=== PATIENT | female | born 1950 | race Caucasian/White ===

== ENCOUNTER 2020-01-02 12:30 | Outpatient (CLI) | payer MEDICARE, SELFPAY ==
--- NOTE | ~2020-01-02 | CT_ITS ---
EXAMINATION: CT shoulder RT wo con DATE: 01/02/2020 14:17 INDICATION: Right shoulder osteoarthritis. TECHNIQUE: Computed tomography (CT) of the right shoulder was performed without intravenous contrast. Automated exposure control and iterative reconstruction technique were employed. The dose-length pro duct was 457.39 mGy-cm. COMPARISON: Right shoulder radiographs 10/21/2019 FINDINGS: There is mild scarring at right lung apex. Bone alignment is normal. No fracture. There is advanced glenohumeral joint osteoarthritis including mild bone volume loss of the humeral head and gl enoid. There is moderate acromioclavicular joint osteoarthritis including inferiorly directed osteoph ytes. There is mild fatty atrophy of subscapularis muscle belly. IMPRESSION: 1. Advanced right glenohumeral joint osteoarthritis. Reviewed, dictated and finalized at location E.
== END 2020-01-02 12:31 | disposition home or self-care (01) ==
LOC: ANHIMG 12:42
PROVIDERS: PCP Internal Medicine; Visit Provider Orthopaedic Surgery
DX: M19.011 Primary osteoarthritis, right shoulder (principal)
CPT/HCPCS: 73200

== ENCOUNTER 2020-01-02 14:24 | Outpatient (CLI) | payer MEDICARE, SELFPAY ==
--- NOTE | 2020-01-02 15:07 | ECG_ITS ---
Measurements Intervals Pearl Rate: 62 P: 42 ND: 206 QRS: -4 QRSD: 159 T: 67 QT: 471 QTc: 481 Interpretive Statements SINUS RHYTHM BORDERLINE AV CONDUCTION DELAY LEFT BUNDLE BRANCH BLOCK BASELINE ARTIFACT- I, II, III, AVR, AVL, AVF ABNORMAL ECG Electronically Signed On 01-02-2020 16:17:01 CDT by Eddi Arteaga D.O.
[2020-01-02 15:32] LABS: Basophils Absolute Auto 0.1 K/mm3 (0.0-0.1); Basophils Percent Auto 0.6 % (0.2-1.2); Eosinophils Absolute Auto 0.2 K/mm3 (0-0.3); Eosinophils Percent Auto 2.1 % (0-4.4); Hematocrit 44.7 % (37.0-47.0); Hemoglobin 15.3 g/dL (12.0-15.0); Immature Granulocyte Absolute 0.04 K/mm3 (0.00-0.031); Immature Granulocyte Percent A 0.5 % (0-0.5); Lymphocytes Absolute Auto 2.15 K/mm3 (0.9-3.2); Lymphocytes Percent Auto 26.3 % (18.3-44.2); Mean Corpuscular HGB Conc 34.2 g/dl (32-36); Mean Corpuscular Hemoglobin 29.1 pg (26-34); Mean Corpuscular Volume 85.1 fl (80-100); Mean Platelet Volume 9.7 fl (7.4-10.4); Monocytes Absolute Auto 0.5 K/mm3 (0.1-0.6); Monocytes Percent Auto 6.1 % (2.6-8.5); Neutrophils Absolute Auto 5.3 K/mm3 (1.3-6.7); Neutrophils Percent Auto 64.4 % (45.5-73.1); Platelet Count Result 298 k/mm3 (150-375); Red Blood Count 5.25 M/mm3 (4.2-5.4); Red Cell Distribution Width 12.7 % (11.5-14.5); White Blood Count 8.2 K/mm3 (4.5-10.0)
[2020-01-02 15:42] LABS: Blood Urea Nitrogen 18 mg/dL (7-17); Carbon Dioxide 31 mmol/L (22-30); Chloride 102 mmol/L (98-107); Estimated Glomerular Filt Rate > 60; Glucose 109 mg/dL (65-105); Potassium 3.7 mmol/L (3.4-5.0); Sodium 138 mmol/L (137-145)
== END 2020-01-02 14:25 | disposition home or self-care (01) ==
PROVIDERS: Anesthesiology; PCP Internal Medicine; Visit Provider Orthopaedic Surgery
DX: Z01.818 Encounter for other preprocedural examination (principal); M19.011 Primary osteoarthritis, right shoulder; I10 Essential (primary) hypertension; I44.7 Left bundle-branch block, unspecified; R94.31 Abnormal electrocardiogram [ECG] [EKG]
CPT/HCPCS: 36415; 73200; 80048; 85025; 87081; 93005

== ENCOUNTER 2020-01-21 00:07 | Outpatient (CLI) | payer MEDICARE, SELFPAY ==
[2020-01-21 18:58] LABS: SARS-CoV-2 RNA PCR Negative
== END 2020-01-21 00:08 | disposition home or self-care (01) ==
LOC: ANHCOVIDDT 00:08
PROVIDERS: PCP Internal Medicine; Visit Provider Orthopaedic Surgery
DX: Z01.812 Encounter for preprocedural laboratory examination (principal); Z20.828 Contact with and (suspected) exposure to other viral communicable diseases
CPT/HCPCS: 87635; C9803; U0003

== ENCOUNTER 2020-01-23 11:48 | Inpatient (IN) | payer MEDICARE, SELFPAY ==
[2020-01-02 15:09] VITALS: BP 144/85; PULSE 71; RESP 18; TEMP 37.2; O2SAT 97; BMI 29.5
[2020-01-23] VITALS (14 sets, daily range): BP systolic 98–158; BP diastolic 56–83; PULSE 64–86; RESP 13–20; TEMP 36.2–37.3; O2SAT 90–98; BMI 29.9
--- NOTE | ~2020-01-23 | XR_ITS ---
EXAMINATION: XR shoulder RT min 2V DATE: 01/23/2020 10:47 INDICATION: Right shoulder arthroplasty TECHNIQUE: 2 views right shoulder FINDINGS: There is a right total shoulder arthroplasty in expected position. Subcutaneous gas with s oft tissue swelling are consistent with recent surgery. IMPRESSION: 1. Recent right total shoulder arthroplasty. Reviewed, dictated and finalized at location A.
[2020-01-23] MEDS: LACTATED RINGERS 1,000 ML 30 ML IV CONT ×2 (06:30→10:20)
--- NOTE | 2020-01-23 06:52 | WPDANESEPPF ---
Anes - Initial Pre Proc Eval Procedure: Operation Date: 01/23/20 07:30 Proposed Procedures p Right Total Shoulder Arthroplasty - Jb Conroy MD Date/Time: 01/23/20 06:52 Surgeon: Jb Conroy MD Pre Op Diagnosis: OA Right Shoulder Patient Data Age: 69 Gender: F Height: 5 ft Weight: 68.5 kg Last Vital Signs Temp 37.2 C 01/02/20 15:09 Pulse 71 01/02/20 15:09 Resp 18 01/02/20 15:09 BP 144/85 H 01/02/20 15:09 Pulse Ox 97 01/02/20 15:09 Allergies Allergy/AdvReac Type Severity Reaction Status Date / Time quinapril Allergy Unknown Cough Verified 01/13/20 08:06 Home Medications Medication Instructions Recorded Confirmed Type alprazolam 0.25 mg tablet 0.25 mg PO HS 10/21/19 01/13/20 History aspirin 81 mg tablet,delayed 81 mg PO DAILY 10/21/19 01/13/20 History release calcium carbonate 600 mg calcium 600 mg PO BID 10/21/19 01/13/20 History (1,500 mg) tablet hydrochlorothiazide 25 mg tablet 25 mg PO DAILY 10/21/19 01/13/20 History levothyroxine 50 mcg tablet 50 mcg PO DAILY 10/21/19 01/13/20 History metoprolol succinate 25 mg 100 mg PO BID tablet 10/21/19 01/13/20 History tablet,extended release 24 hr Patient hx anesthesia problems: none Family hx anesthesia problems: none PMFSH Past Medical History Medical History Anxiety Depression Hypertension Thyroid disease Surgical History Surgical History History of total abdominal hysterectomy Status post right partial knee replacement (~11/08/17) Family History Family History Mother Family history of arthritis Sibling Family history of Parkinson's disease Malignant neoplasm of prostate Family history of malignant neoplasm of ovary Other Cerebrovascular accident Family history of cardiovascular disease Family history of development disorder Family history of hypercholesterolemia Family history of kidney disease Family history of thyroid disease Hypertension Social History Social History Smoking status: Never smoker Second hand tobacco smoke exposure: No Alcohol intake: current Anes - Eval Final PreProcedure Day of Procedure 01/23/20 06:52 Patient weight: overweight Heart: regular rate and rhythm Lungs: clear to auscultation Airway: Mallampati scale class 1 Neurological: alert and oriented Last oral intake: >/= 8 hours ASA classification: III Emergent: no Anesthetic plan: proceed Anesthesia type and monitoring: general ETT and standard monitoring Informed Consent: The patient's anesthetic plan and its attendant risks and benefits were discussed with the patient/family/POA. Questions were solicited and answers provided to the satisfaction of the patient/family/POA.
[2020-01-23] MEDS: TRANEXAMIC ACID 1,000MG/ISO100 1,000 MG/100 ML BAG 200 MG IVPB (07:05)
--- NOTE | 2020-01-23 07:16 | WPDHPUPDATE1 ---
History and Physical Update Update Date/Time: 01/23/20 07:16 History and Physical has been reviewed, including an updated exam of the patient. There are NO changes in the patient's condition. Risks, benefits, and alternatives have been discussed and questions answered. Patient agrees to proceed with procedure.
[2020-01-23] MEDS: ceFAZolin 2 GM/D5W 50 ML 2 GM/50 ML BAG IVPB (07:30)
--- NOTE | 2020-01-23 10:00 | PM.PROC ---
Procedure Note - Detailed Date of procedure: 01/23/20 Pre-op diagnosis: OA Right Shoulder Post-op diagnosis: same Procedure performed: 1. Anatomic total shoulder arthroplasty 2. Lesser tuberosity osteotomy. 3. Biceps tenodesis. Description of procedure: Bone quality fair. Small stature. Posterior capsule released. Implants: [employer]ornier Aequalis Ascend Flex humeral stem size 2C. Aequalis humeral head flex system size 41 low offset at 12 o'clock. Shoulder Innovations, Glenoid circular in-line peg 22 x 6 millimeter glenoid component. Anesthesia: GETA Surgeon: Jb Conroy MD Estimated blood loss (mL): 50 Drains: No Complications: No immediate complications Condition: stable Disposition: PACU Findings: OPERATIVE DETAILS: Preoperative antibiotics were given. The patient was transferred to the operating room and a general anesthetic was administered. The beach chair position was used at 45 degrees. All bony prominences were padded. The head was carefully stabilized on the Cummings overhead garage door hanger. A sterile prep and drape was performed in the usual manner with Chloraprep. A longitudinal incision was created at the anterior shoulder just lateral to the deltopectoral interval. Careful dissection was performed to expose the interval and protect the cephalic vein. The vein was retracted medially. The upper border of the pectoralis was released. Anterior circumflex vessel branches were suture ligated. The biceps tenodesed. A small lesser tuberosity osteotomy was performed after opening the joint capsule at the rotator interval. The inferior capsule was released, exposing the humeral head. Osteophytes were removed. Care was taken to stay on bone to protect the axillary nerve. The anatomic head cut was taken with the oscillating saw. Sounding and broaching was performed. The neck anteversion and inclination were carefully assessed. Head sizing and offset were determined. The cut protector was placed, and attention was turned to the glenoid. Retractors were placed. Releases were carried out for exposure. The subscapularis was mobilized, the inferior capsule and long head of triceps released, and the superior and middle glenohumeral ligaments released as well. Labral tissue was resected. The sizing template was used and a guide pin was placed. 5? of deformity correction was performed. The Reamer was placed over the guide pin and taken down to create a 3-4 millimeter wall. The peg drill guide was applied and the pegs drilled. The trial component was placed and fit very nicely. Excellent stability was confirmed. The real component was cemented into position. Excess cement was carefully removed. The humerus was prepared for subscapularis repair with the drilling and passage of 3 suture leaders, and a rip stop #2 tape suture at the biceps groove. The real humeral stem and head were impacted into position. The shoulder was copiously irrigated periodically with pulsatile lavage. The shoulder was reduced and the subscapularis repaired with #5 Ethibond suture modified Josemanuel-Kd sutures, and reinforced with number 2 Ethibond suture. The rotator interval was reapproximated distally. The biceps tenodesis was incorporated with the pectoralis tendon repair using #5 Ethibond suture. The deltopectoral space was reapproximated with 2-0 Vicryl. The remaining tissue was closed with 0 Quill and 2-0 Quill running suture and steri-strips. A sterile dressing and shoulder immobilizer was placed. The patient was transferred to the recovery room.
--- NOTE | 2020-01-23 10:38 | SUR.PHASEI ---
radiology here for AP lateral xray
--- NOTE | 2020-01-23 11:14 | SUR.PHASEI ---
Updated Raffaele (spouse) and gave him pts room number [phone]
[2020-01-23] MEDS: KETOROLAC 15 MG/ML VIAL (*BKC) IV PUSH ×2 (13:04→17:48)
[2020-01-23] MEDS: SODIUM CHLORIDE 0.9% IV 1,000 ML 125 ML IV CONT (13:04)
[2020-01-23] MEDS: CALCIUM CARBONATE (OSCAL) 500 MG TABLET PO (17:40)
[2020-01-23] MEDS: DOCUSATE SODIUM 100 MG CAPSULE PO (17:40)
[2020-01-23] MEDS: ALPRAZOLAM 0.25 MG TABLET PO (21:29)
[2020-01-23] MEDS: METOPROLOL SUCCINATE EXT REL 100 MG TABCR PO (21:29)
[2020-01-24] VITALS (7 sets, daily range): BP systolic 148–176; BP diastolic 67–84; PULSE 73–86; RESP 16–18; TEMP 36.2–37.5; O2SAT 94–99; BMI 29.9
[2020-01-24] MEDS: KETOROLAC 15 MG/ML VIAL (*BKC) IV PUSH (00:06)
[2020-01-24] MEDS: LEVOTHYROXINE SODIUM 50 MCG TABLET PO (05:58)
[2020-01-24] MEDS: CALCIUM CARBONATE (OSCAL) 500 MG TABLET PO (09:20)
[2020-01-24] MEDS: DOCUSATE SODIUM 100 MG CAPSULE PO (09:20)
[2020-01-24] MEDS: METOPROLOL SUCCINATE EXT REL 100 MG TABCR PO (09:20)
[2020-01-24] MEDS: hydroCHLOROthiazide 25 MG TABLET PO (09:20)
[2020-01-24] MEDS: ASPIRIN 81 MG ENTERIC TABLET PO (09:21)
--- NOTE | 2020-01-24 10:10 | WPDANESPN ---
Anes - Prog Note Post-Op Date/Time: 01/24/20 10:10 Cardiovascular status: normal Respiratory status: normal Airway patency: baseline Mental status: baseline Post-Op hydration status: normal Vital Signs: Last Vital Signs Temp 36.7 C 01/24/20 06:00 Pulse 80 01/24/20 09:20 Resp 18 01/24/20 06:00 BP 148/75 H 01/24/20 06:00 Pulse Ox 96 01/24/20 09:02 Pain Score (VAS): 0/10. Patient resting in bed at time of assessment, appears comfortable. I/O: Intake & Output 01/23/20 01/24/20 01/24/20 23:59 07:59 15:59 Intake Total 812 400 Balance 812 400 Post-procedural complaints: none Patient Feedback: Patient satisfied with anesthetic care.
[2020-01-24] MEDS: ACETAMINOPHEN 500 MG TABLET 1000 MG PO (11:50)
--- NOTE | 2020-01-24 15:50 | PC.NURSE ---
Patient sent home with gel pads and cover, slingshot immobilizer and instructions and MD discharge instruction sheet.
--- NOTE | 2020-02-13 16:52 | PM.DS ---
DS: Admitting Diagnosis Admitting Diagnosis Admitting Diagnosis: Primary osteoarthritis, right shoulder DS: Discharge Diagnosis Discharge Diagnosis (1) History of total replacement of right shoulder joint: Code(s): Z96.611 - Presence of right artificial shoulder joint Status: Acute DS: Summary Hospital Course Reason for hospitalization: Total shoulder arthroplasty. Hospital Course: Tolerated surgery well. Progressed appropriately with therapy. Status at Discharge Functional status at discharge: independent ambulation Time Spent with Patient Time attestation: Total time spent providing and/or coordinating discharge services: Exam Const: General: no acute distress Resp: Effort & Inspection: normal respiratory effort Skin: Other: Wound healing well. Mepilex dressing intact. No hematoma or drainage. Sling applied appropriately. Deltoid muscle fires. Axillary nerve sensation intact. 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 No edema. radial pulse palpable. Neuro: Motor exam (neuro): 5/5 motor strength present throughout Sensory Exam: normal sensation Psych: Mental Status: mental status grossly normal Speech and movement: Normal speech and movement present Discharge Plan Discharge Attending physician on discharge: Jb Conroy Consulting providers: Reyes Sutton Discharging Clinician: Jb Conroy Patient Disposition: Home, Self-Care Activity: december shower Diet: regular Wound Care Instructions: follow printed instructions Discharge Instructions: See instruction sheet. Patient Instructions: Antibiotic Form, Aspirin (By mouth), Joint Replacement Surgery (DC) Stand Alone Forms: General Discharge Information Follow-up/Referrals: Jb Conroy MD [Physician] - Discharge Medications: New hydrocodone-acetaminophen 5-325 mg tablet 1 tablet PO Q4H PRN (Reason: pain) Qty: 30 RF: 0 Continued alprazolam 0.25 mg tablet 0.25 mg PO HS RF: 0 aspirin 81 mg tablet,delayed release (DR/EC) 81 mg PO DAILY RF: 0 calcium carbonate 600 mg calcium (1,500 mg) tablet 600 mg PO BID RF: 0 hydrochlorothiazide 25 mg tablet 25 mg PO DAILY RF: 0 levothyroxine 50 mcg tablet 50 mcg PO DAILY RF: 0 metoprolol succinate 25 mg tablet extended release 24 hr 100 mg PO BID RF: 0 Date of admission: 01/23/20 11:48 Primary Care Provider: SherlyNaun Admitting Provider: Jb Conroy Discharge Date/Time: 01/24/20 15:50 Attending physician on admission: Jb Conroy
== END 2020-01-24 15:50 | disposition home or self-care (01) | DRG 483 ==
LOC: ANH2MED 12:01
PROVIDERS: Admitting Provider Orthopaedic Surgery; PCP Internal Medicine; Visit Provider Orthopaedic Surgery
PROC: 0RRJ0JZ Replacement of Right Shoulder Joint with Synthetic Substitute, Open Approach (ICD-10-PCS; CPT 23472; principal; 2020-01-23 07:30)
DX: M19.011 Primary osteoarthritis, right shoulder (principal); I10 Essential (primary) hypertension; E07.9 Disorder of thyroid, unspecified; Z90.710 Acquired absence of both cervix and uterus
CPT/HCPCS: 36415; 73030; 86850; 86900; 86901; 87635; 97110; 97161; 97165; A4565; A9270; C1713; C1776; C9803; J0131; J0171; J0330; J0690; J1100; J1885; J2250; J2270; J2405; J2704; J2795; J3010; J7030; J7120; U0003